=== PATIENT | female | born 1970 | race Caucasian/White ===

== ENCOUNTER 2018-09-02 22:35 | Emergency (ER) | payer BC ==
--- OUTSIDE RECORDS SUMMARY | 2018-09-02 22:39 | XMS REPORT | Continuity of Care Document ---
:1970 Author Organization [facility] Care Team Providers Name Role Phone Milton Arnold MD Unavailable Unavailable Insurance Providers Payer name Policy type / Coverage Policy ID Covered alliance party ID Policy Evangelista [place] Encounters Encounter Performer Location Date [facility] [place] Oct 21, 2014 Problems Problem Effective Dates Problem Status STATUS POST CHOLECYSTECTOMY Jul 22, 2014 Active 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, 2014 Active Procedures Date Description Comments Jul 22, 2014 smoking status Never smoker Sep 23, 2014 smoking status Never smoker Oct 21, 2014 smoking status Never smoker Medications Medication Instructions Start Date Status NORCO 10-325 MG TABS Jul 22, 2014 Active DUEXIS 800-26.6 MG TABS Jul 22, 2014 Inactive FLAX OIL Jul 22, 2014 Inactive FTUDANVFAG-MLAQ-IZRI-COD CAPS Jul 22, 2014 Inactive EQ IBUPROFEN TABS Jul 22, 2014 Inactive LINZESS 290 MCG CAPS Jul 22, 2014 Inactive MIRALAX POWD Oct 07, 2014 Inactive ZOFRAN 4 MG TABS Oct 21, 2014 Active [facility] TABS Oct 21, 2014 Active Vital Signs Date Description Test Result Jul 22, 2014 weight E&M - 3141-9 WEIGHT 155.4 lb Jul 22, 2014 height E&M - 8302-2 HEIGHT 64 in Jul 22, 2014 temperature E&M TEMPERATURE 97.7 deg f Jul 22, 2014 pulse rate E&M - 8867-4 PULSE RATE 79 /min Jul 22, 2014 blood pressure, systolic - 8480-6 BP SYSTOLIC 149 mm Hg Jul 22, 2014 blood pressure, diastolic - 8462-4 BP DIASTOLIC 89 mm Hg Sep 23, 2014 weight E&M - 3141-9 WEIGHT 159.4 lb Sep 23, 2014 height E&M - 8302-2 HEIGHT 64 in Sep 23, 2014 temperature E&M TEMPERATURE 98.0 deg f Sep 23, 2014 respiratory rate E&M - 9279-1 RESP RATE 18 /min Sep 23, 2014 pulse rate E&M - 8867-4 PULSE RATE 82 /min Sep 23, 2014 blood pressure, systolic - 8480-6 BP SYSTOLIC 132 mm Hg Sep 23, 2014 blood pressure, diastolic - 8462-4 BP DIASTOLIC 84 mm Hg Oct 07, 2014 weight E&M - 3141-9 WEIGHT 161.4 lb Oct 07, 2014 height E&M - 8302-2 HEIGHT 64 in Oct 07, 2014 temperature E&M TEMPERATURE 97.0 deg f Oct 07, 2014 respiratory rate E&M - 9279-1 RESP RATE 17 /min Oct 07, 2014 pulse rate E&M - 8867-4 PULSE RATE 76 /min Oct 07, 2014 blood pressure, systolic - 8480-6 BP SYSTOLIC 136 mm Hg Oct 07, 2014 blood pressure, diastolic - 8462-4 BP DIASTOLIC 86 mm Hg Oct 21, 2014 weight E&M - 3141-9 WEIGHT 162.2 lb Oct 21, 2014 height E&M - 8302-2 HEIGHT 64 in Oct 21, 2014 temperature E&M TEMPERATURE 97 deg f Oct 21, 2014 pulse rate E&M - 8867-4 PULSE RATE 88 /min Oct 21, 2014 blood pressure, systolic - 8480-6 BP SYSTOLIC 140 mm Hg Oct 21, 2014 blood pressure, diastolic - 8462-4 BP DIASTOLIC 89 mm Hg
--- OUTSIDE RECORDS SUMMARY | 2018-09-02 22:39 | XMS REPORT | Continuity of Care Document ---
:1970 Author Organization [facility] Care Team Providers Name Role Phone Milton Arnold MD Unavailable Unavailable Insurance Providers Payer name Policy type / Coverage Policy ID Covered green party ID Policy Evangelista [place]: [place] Encounters Encounter Performer Location Date Office Visit Milton Arnold MD [facility] [place] [place] [facility] [place] Oct 07, 2014 Problems Problem Effective Dates Problem Status STATUS POST CHOLECYSTECTOMY Jul 22, 2014 Active 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
--- OUTSIDE RECORDS SUMMARY | 2018-09-02 22:39 | XMS REPORT | Continuity of Care Document ---
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
--- OUTSIDE RECORDS SUMMARY | 2018-09-02 22:39 | XMS REPORT | Continuity of Care Document ---
:1970 Author Organization [facility] Care Team Providers Name Role Phone Milton Arnold MD Unavailable Unavailable Insurance Providers Payer name Policy type / Coverage Policy ID Covered democrat ID Policy Evangelista [place] Encounters Encounter Performer Location Date [facility] Visit [facility] [place] Oct 28, 2014 Problems Problem Effective Dates Problem Status [...] Inactive FLAX OIL Jul 22, 2014 Inactive MAXROSAGSE-ZEGM-CRUT-COD CAPS Jul 22, 2014 Inactive EQ IBUPROFEN [...] - 8462-4 BP DIASTOLIC 89 mm Hg Oct 28, 2014 weight E&M - 3141-9 WEIGHT 160 lb Oct 28, 2014 height E&M - 8302-2 HEIGHT 64 in Oct 28, 2014 temperature E&M TEMPERATURE 98.2 deg f Oct 28, 2014 pulse rate E&M - 8867-4 PULSE RATE 86 /min Oct 28, 2014 blood pressure, systolic - 8480-6 BP SYSTOLIC 130 mm Hg Oct 28, 2014 blood pressure, diastolic - 8462-4 BP DIASTOLIC 87 mm Hg Oct 28, 2014 respiratory rate E&M - 9279-1 RESP RATE 18 /min
--- OUTSIDE RECORDS SUMMARY | 2018-09-02 22:39 | XMS REPORT | Continuity of Care Document ---
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
--- OUTSIDE RECORDS SUMMARY | 2018-09-02 22:39 | XMS REPORT | Continuity of Care Document ---
:1970 Author Organization Interface Problems Problem Status Onset Classification Date Comments Source Date Reported STATUS POST Active 07/23/19 Condition 10/28/2014 [facility] CHOLECYSTECTOMY 15 Neuro COMMUNICATING Active 07/23/19 Condition 10/28/2014 [facility] HYDROCEPHALUS 15 Neuro Medications Medication Details Route Status Patient Ordering Order Source Instructions Provider Date ZOFRAN 4 MG Active 10/22/19 [facility] TABS 15 [facility] Active 10/22/19 [facility] TABS 15 Neuro MIRALAX POWD No Longer 10/08/19 [facility] Active 15 Neuro LINZESS 290 No Longer 07/23/19 [facility] MCG CAPS Active 15 Neuro DUEXIS No Longer 07/23/19 [facility] 800-26.6 MG Active 15 Neuro TABS FLAX OIL No Longer 07/23/19 [facility] Active 15 Neuro BUTALBITAL-APA No Longer 07/23/19 [facility] P-CAFF-COD Active 15 Neuro CAPS NORCO 10-325 Active 07/23/19 [facility] MG TABS 15 Neuro EQ IBUPROFEN No Longer 07/23/19 [facility] TABS Active 15 Neuro Allergies, Adverse Reactions, Alerts Substance Category Reaction Severity Reaction Status Date Comments Source type Reported Immunizations Immunization Date Given Site Status Last Updated Comments Source Results Order Results Value Reference Date Interpretation Comments Source Name Range Vital Signs Vital Sign Value Date Comments Source Weight 160 10/28/2014 [facility] Height 64 10/28/2014 [facility] Temperature Oral (F) 98.2 F 10/28/2014 [facility] Heart Rate 86 10/28/2014 [facility] Systolic (mm Hg) 130 10/28/2014 [facility] Diastolic (mm Hg) 87 10[facility]28[facility] 18 10/28/2014 [facility] Weight 162.2 10/21/2014 [facility] Height 64 10/21/2014 [facility] Temperature Oral (F) 97 F 10/21/2014 [facility] Heart Rate 88 10/21/2014 [facility] Systolic (mm Hg) 140 10/21/2014 [facility] Diastolic (mm Hg) 89 10/21/2014 [facility] Weight 161.4 10/07/2014 [facility] Height 64 10/07/2014 [facility] Temperature Oral (F) 97.0 F 10/07/2014 [facility] Respitory Rate 17 10/07/2014 [facility] Heart Rate 76 10/07/2014 [facility] Systolic (mm Hg) 136 10/07/2014 [facility] Diastolic (mm Hg) 86 10/07/2014 [facility] Weight 159.4 09/23/2014 [facility] Height 64 09/23/2014 [facility] Temperature Oral (F) 98.0 F 09/23/2014 [facility] Respitory Rate 18 09/23/2014 [facility] Heart Rate 82 09/23/2014 [facility] Systolic (mm Hg) 132 09/23/2014 [facility] Diastolic (mm Hg) 84 09/23/2014 [facility] Weight 155.4 07/22/2014 [facility] Height 64 07/22/2014 [facility] Temperature Oral (F) 97.7 F 07/22/2014 [facility] Heart Rate 79 07/22/2014 [facility] Systolic (mm Hg) 149 07/22/2014 [facility] Diastolic (mm Hg) 89 07/22/2014 [facility] Encounters Location Location Encounter Encounter Reason Attending ADM DC Status Source Details Type Number For Provider Date Date Visit [facility] [id number] Milton Arnold 07/22 07/22 [facility] [address] [facility] [id number] Milton Arnold 09/23 09/23 [facility] [facility] [id number] Milton Arnold 10/07 10/07 [facility] [facility] [id number] Milton Arnold 10/21 10/21 [facility] [facility] [id number] Milton Arnold 10/28 10/28 [facility] Procedures Procedure Code Date Perfomer Comments Source
[2018-09-02 23:54] LABS: Absolute Lymphocytes (CBC) 2.1 K/uL (0.7-4.9); Absolute Monocytes 0.7 K/uL (0.1-1.3); Absolute Neutrophil 3.3 K/uL (1.8-8.0); Basophils % 0.2 % (0-1.3); Eosinophils % 2.2 % (0-4.4); Hematocrit 33.7 % (36.0-45.0); Lymphocytes % 33.6 % (15.3-44.8); MPV 7.8 fL (7.6-11.3); Monocytes % 10.5 % (3.3-12.3); RBC Red Blood Cell Count 4.38 M/uL (3.86-4.86)
[2018-09-03 00:09] LABS: ALT/SGPT 32 U/L (12-78); AST/SGOT 19 U/L (15-37); Albumin 3.4 g/dL (3.4-5.0); Alkaline Phosphatase 79 U/L (45-117); BUN Blood Urea Nitrogen 19 mg/dL (7-18); Bicarbonate 27 mmol/L (21-32); Bilirubin Direct < 0.1 mg/dL (0-0.2); Bilirubin Total 0.2 mg/dL (0.2-1.0); Glucose Level 86 mg/dL (74-106); Lipase 191 U/L (73-393); Protein, Total 7.2 g/dL (6.4-8.2); Sodium Level 140 mmol/L (136-145)
[2018-09-03 00:46] LABS: Urine Blood NEGATIVE (NEG); Urine Glucose NEGATIVE (NEG); Urine Protein NEGATIVE (NEG); Urine Specific Gravity 1.025 (1.005-1.030); Urine pH 5.5 (5.0-7.0)
--- NOTE | 2018-09-03 01:47 | ER ---
Nurse's Notes [facility] Name: Flaquita Thompson Age: 47 yrs Sex: Female : 1970 Arrival Date: 09/02/2018 Time: 22:39 Bed 6 Private MD: Gurwinder Mendez Diagnosis: Calculus of ureter-right Presentation: 09/02 23:00 Presenting complaint: Patient states: right lower back pain that radiates to right ak1 lower abd and down right leg X1 week. Transition of care: patient was not received from another setting of care. Onset of symptoms is unknown. Risk Assessment: Do you want to hurt yourself or someone else? Patient reports no desire to harm self or others. Initial Sepsis Screen: Does the patient meet any 2 criteria? No. Patient's initial sepsis screen is negative. Does the patient have a suspected source of infection? No. Patient's initial sepsis screen is negative. Care prior to arrival: None. 23:00 Method Of Arrival: Ambulatory ak1 23:00 Acuity: KRIS 4 ak1 Triage Assessment: 23:03 General: Appears in no apparent distress. Behavior is calm, cooperative. Pain: ak1 Complains of pain in right lower back. EENT: No signs and/or symptoms were reported regarding the EENT system. Neuro: No deficits noted. Cardiovascular: No deficits noted. Respiratory: No deficits noted. GI: No signs and/or symptoms were reported involving the gastrointestinal system. : No signs and/or symptoms were reported regarding the genitourinary system. Derm: No signs and/or symptoms reported regarding the dermatologic system. Musculoskeletal: Range of motion: intact in all extremities. 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 Patient has never been vaccinated. - Social history:: Smoking status: Patient/guardian denies using tobacco. - Ebola Screening: : No symptoms or risks identified at this time. Screenin:06 Abuse screen: Denies threats or abuse. Denies injuries from another. Nutritional ak1 screening: No deficits noted. Tuberculosis screening: No symptoms or risk factors identified. Fall Risk None identified. Assessment: 23:05 Reassessment: Patient appears in no apparent distress at this time. see triage ak1 assessment. Neuro: Level of Consciousness is awake, alert, obeys commands, Oriented to person, place, time, situation, Wash And Greaser are equal bilaterally Moves all extremities. Gait is steady, Speech is normal, Facial symmetry appears normal. 09/03 00:12 Reassessment: Patient appears in no apparent distress at this time. No changes from ak1 previously documented assessment. Patient and/or family updated on plan of care and expected duration. Pain level reassessed. Patient is alert, oriented x 3, equal unlabored respirations, skin warm/dry/pink. 01:55 Reassessment: Patient appears in no apparent distress at this time. No changes from ak1 previously documented assessment. Patient and/or family updated on plan of care and expected duration. Pain level reassessed. Patient is alert, oriented x 3, equal unlabored respirations, skin warm/dry/pink. 02:17 Reassessment: pt with steady gait at discharge. pt informed to follow up with urology ak1 and PCP. Vital Signs: 09/02 22:58 BP 162 / 83; Pulse 76; Resp 16; Temp 97.4; Pulse Ox 99% on R/A; Weight 77.11 kg (R); ak1 Height 5 ft. 5 in. (165.10 cm) (R); Pain 10/10; 09/03 00:13 BP 136 / 82; Pulse 75; Resp 16; Pulse Ox 99% on R/A; ak1 01:55 BP 178 / 84; Pulse 66; Resp 16; Temp 98.; Pulse Ox 98% on R/A; ak1 09/02 22:58 Body Mass Index 28.29 (77.11 kg, 165.10 cm) ak1 ED Course: 09/02 22:39 Patient arrived in ED. es 22:41 Gurwinder Mendez MD is Private Physician. es 22:58 Mile Dent, RN is Primary Nurse. ak1 22:58 Arm band placed on Patient placed in an exam room, on a stretcher, on pulse oximetry, ak1 Patient notified of wait time. 23:01 Triage completed. ak1 23:06 Link Patterson NP is PHCP. pm1 23:06 Gonzalo Joe MD is Attending Physician. pm1 23:07 Patient has correct armband on for positive identification. Bed in low position. Call ak1 light in reach. Side rails up X 1. Adult w/ patient. Pulse ox on. NIBP on. 23:37 Initial lab(s) drawn, by me, sent to lab. Urine collected: clean catch specimen, clear, ak1 Amount Voided: 30mL. Inserted saline lock: 22 gauge in right antecubital area, using aseptic technique. Blood collected. 0603 01:12 CT Stone Protocol In Process Unspecified. EDMS 01:57 No provider procedures requiring assistance completed. ak1 02:17 IV discontinued, intact, bleeding controlled, No redness/swelling at site. Pressure ak1 dressing applied. Administered Medications: 02:15 Drug: Flomax 0.4 mg Route: PO; ak1 02:16 Follow up: Response: No adverse reaction; Medication administered at discharge. ak1 02:15 Drug: Cipro 500 mg Route: PO; ak1 02:15 Follow up: Response: No adverse reaction; Medication administered at discharge. ak1 02:15 Drug: TORadol 30 mg Route: IVP; Site: right antecubital; ak1 02:16 Follow up: Response: No adverse reaction; Medication administered at discharge. ak1 Outcome: 01:47 Discharge ordered by . pm1 01:58 Condition: good ak1 02:16 Discharged to home ambulatory, with family. ak1 02:16 Discharge instructions given to patient, family, Instructed on discharge instructions, follow up and referral plans. no drinking with medication, no driving heavy equipment, medication usage, safe sex practices, control, Demonstrated understanding of instructions, follow-up care, medications, Prescriptions given X 4. 02:18 Patient left the ED. ak1 Signatures: Dispatcher [employer] Ria Smith Amber, RN RN ak1 Link Patterson, MARY NET DEVELOPMENT MANAGER pm1
--- NOTE | 2018-09-03 01:47 | EDPHYS ---
Physician Documentation [facility] Name: Flaquita Thompson Age: 47 yrs Sex: Female : 1970 Arrival Date: 09/02/2018 Time: 22:39 Bed 6 Private MD: Gurwinder Mendez ED Physician Gonzalo Joe HPI: 09/03 00:05 This 47 yrs old Female presents to ER via Ambulatory with complaints of Back pm1 Pain. 00:05 The patient complains of pain in the right low back. The pain radiates to the right pm1 leg. Onset: The symptoms/episode began/occurred 1 week(s) ago. Modifying factors: The symptoms are alleviated by nothing. the symptoms are aggravated by nothing. Associated signs and symptoms: Pertinent negatives: diarrhea, dysuria, fever, nausea, vomiting. Severity of pain: in the emergency department the pain is actually worse. The patient has not experienced similar symptoms in the past. The patient has not recently seen a physician. 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 Patient has never been vaccinated. - Social history:: Smoking status: Patient/guardian denies using tobacco. - Ebola Screening: : No symptoms or risks identified at this time. ROS: 09/03 00:05 Constitutional: Negative for fever, chills, and weight loss, Eyes: Negative for injury, pm1 pain, redness, and discharge, ENT: Negative for injury, pain, and discharge, Neck: Negative for injury, pain, and swelling, Cardiovascular: Negative for chest pain, palpitations, and edema, Respiratory: Negative for shortness of breath, cough, wheezing, and pleuritic chest pain, Abdomen/GI: Negative for abdominal pain, nausea, vomiting, diarrhea, and constipation. : Negative for injury, bleeding, discharge, and swelling, MS/Extremity: Negative for injury and deformity, Skin: Negative for injury, rash, and discoloration, Neuro: Negative for headache, weakness, numbness, tingling, and seizure. Back: Positive for flank pain, on the right, Negative for decreased range of motion, pain at rest, pain with movement. Exam: 00:05 Constitutional: This is a well developed, well nourished patient who is awake, alert, pm1 and in no acute distress. Head/Face: Normocephalic, atraumatic. Eyes: Pupils equal round and reactive to light, extra-ocular motions intact. Lids and lashes normal. Conjunctiva and sclera are non-icteric and not injected. Cornea within normal limits. Periorbital areas with no swelling, redness, or edema. ENT: Nares patent. No nasal discharge, no septal abnormalities noted. Tympanic membranes are normal and external auditory canals are clear. Oropharynx with no redness, swelling, or masses, exudates, or evidence of obstruction, uvula midline. Mucous membranes moist. Neck: Trachea midline, no thyromegaly or masses palpated, and no cervical lymphadenopathy. Supple, full range of motion without nuchal rigidity, or vertebral point tenderness. No Meningismus. Chest/axilla: Normal chest wall appearance and motion. Nontender with no deformity. No lesions are appreciated. Cardiovascular: Regular rate and rhythm with a normal S1 and S2. No gallops, murmurs, or rubs. Normal PMI, no JVD. No pulse deficits. Respiratory: Lungs have equal breath sounds bilaterally, clear to auscultation and percussion. No rales, rhonchi or wheezes noted. No increased work of breathing, no retractions or nasal flaring. Abdomen/GI: Soft, non-tender, with normal bowel sounds. No distension or tympany. No guarding or rebound. No evidence of tenderness throughout. 00:05 Skin: Warm, dry with normal turgor. Normal color with no rashes, no lesions, and no evidence of cellulitis. MS/ Extremity: Pulses equal, no cyanosis. Neurovascular intact. Full, normal range of motion. 00:05 Back: normal spinal alignment noted, CVA tenderness, that is mild, is noted on the right, vertebral tenderness, is not appreciated. 00:05 Neuro: Orientation: is normal, Motor: is normal, moves all fours. Vital Signs: 09/02 22:58 BP 162 / 83; Pulse 76; Resp 16; Temp 97.4; Pulse Ox 99% on R/A; Weight 77.11 kg (R); ak1 Height 5 ft. 5 in. (165.10 cm) (R); Pain 01/10; 09/03 00:13 BP 136 / 82; Pulse 75; Resp 16; Pulse Ox 99% on R/A; ak1 01:55 BP 178 / 84; Pulse 66; Resp 16; Temp 98.; Pulse Ox 98% on R/A; ak1 09/02 22:58 Body Mass Index 28.29 (77.11 kg, 165.10 cm) [facility] MDM: 09/02 23:09 Patient medically screened. pm1 09/03 01:46 Data reviewed: vital signs. Data interpreted: Pulse oximetry: on room air is 99 %. pm1 Interpretation: normal. Counseling: I had a detailed discussion with the patient and/or guardian regarding: the historical points, exam findings, and any diagnostic results supporting the discharge/admit diagnosis, lab results, radiology results, the need for outpatient follow up, to return to the emergency department if symptoms worsen or persist or if there are any questions or concerns that arise at home. 09/02 23:10 Order name: Basic Metabolic Panel; Complete Time: 00:25 pm09/02 23:10 Order name: CBC with Diff; Complete Time: 00:05 pm09/02 23:10 Order name: Creatinine for Radiology; Complete Time: 00:25 pm09/02 23:10 Order name: Hepatic Function; Complete Time: 00:25 pm09/02 23:10 Order name: Lipase; Complete Time: 00:25 pm09/02 23:38 Order name: Urine Dipstick--Ancillary (enter results) [facility] 09/02 23:10 Order name: IV Saline Lock; Complete Time: 23:41 pm09/02 23:10 Order name: Labs collected and sent; Complete Time: 23:41 pm09/02 23:10 Order name: CT Stone Protocol [facility] 09/02 23:10 Order name: Urine Dipstick-Ancillary (obtain specimen); Complete Time: 23:40 pm1 09/02 23:38 Order name: Urine --Ancillary (enter results) [facility] 09/02 23:10 Order name: Urine Test (obtain specimen); Complete Time: 23:40 pm1 Administered Medications: 02:15 Drug: Flomax 0.4 mg Route: PO; ak1 02:16 Follow up: Response: No adverse reaction; Medication administered at discharge. ak1 02:15 Drug: Cipro 500 mg Route: PO; ak1 02:15 Follow up: Response: No adverse reaction; Medication administered at discharge. ak1 02:15 Drug: TORadol 30 mg Route: IVP; Site: right antecubital; ak1 02:16 Follow up: Response: No adverse reaction; Medication administered at discharge. ak1 Disposition: 02:49 Co-signature as Attending Physician, Gonzalo Joe MD. erin Disposition: 09/03/18 01:47 Discharged to Home. Impression: Calculus of ureter - right. - Condition is Stable. - Discharge Instructions: Kidney Stones, Dietary Guidelines to Help Prevent Kidney Stones. - Prescriptions for Tylenol- Codeine #3 300-30 mg Oral Tablet - take 2 tablet by ORAL route every 6 hours As needed; 30 tablet. Zofran 4 mg Oral Tablet - take 1 tablet by ORAL route every 12 hours As needed; 20 tablet. Flomax 0.4 mg Oral Capsule, Sust. Release 24 hr - take 1 capsule by ORAL route once daily 1/2 hour following the same meal each day; 30 capsule. Cipro 500 mg Oral Tablet - take 1 tablet by ORAL route every 12 hours for 7 days; 14 tablet. - Work release form, Medication Reconciliation Form, Thank You Letter, Antibiotic Education, Prescription Opioid Use form. - Follow up: Emergency Department; When: As needed; Reason: Worsening of condition. Follow up: Private Physician; When: 2 - 3 days; Reason: Recheck today's complaints, Continuance of care, Re-evaluation by your physician. - Problem is new. - Symptoms have improved. Signatures: Dispatcher [employer] EDMS Gonzalo Joe MD MD pkl Mile Dent RN RN ak1 Link Patterson NP PHOTOGRAPHIC SUPERVISOR pm1 Corrections: (The following items were deleted from the chart) 02:18 01:47 09/03/2018 01:47 Discharged to Home. Impression: Calculus of ureter - right. ak1 Condition is Stable. Forms are Medication Reconciliation Form, Thank You Letter, Antibiotic Education, Prescription Opioid Use. Follow up: Emergency Department; When: As needed; Reason: Worsening of condition. Follow up: Private Physician; When: 2 - 3 days; Reason: Recheck today's complaints, Continuance of care, Re-evaluation by your physician. Problem is new. Symptoms have improved. pm1
[2018-09-03] MEDS ORDERED: CIPROFLOXACIN HCL 500 MG TAB ONE (02:22)
[2018-09-03] MEDS ORDERED: TAMSULOSIN 0.4 MG SR CAP ONE (02:23)
[2018-09-03] MEDS ORDERED: KETOROLAC 30 MG/ML INJ ONE (02:23)
--- NOTE | 2018-09-03 10:04 | RAD REPORT ---
EXAM DESCRIPTION: CT Abdomen and Pelvis Without Intravenous Contrast CLINICAL HISTORY: The patient is 47 years old and is Female; Right flank pain TECHNIQUE: Axial computed tomography images of the abdomen and pelvis without intravenous contrast. Sagittal and coronal reformatted images were created and reviewed. This CT exam was performed usi ng one or more of the following dose reduction techniques: automated exposure control, adjustment o f the mA and/or kV according to patient size, and/or use of iterative reconstruction technique. COMPARISON: None. FINDINGS: LUNG BASES: Unremarkable. No mass. No consolidation. ABDOMEN: LIVER: Unremarkable. GALLBLADDER AND BILE DUCTS: Prior cholecystectomy. No ductal dilation. PANCREAS: Unremarkable. No ductal dilation. SPLEEN: Unremarkable. No splenomegaly. ADRENALS: Unremarkable. No mass. KIDNEYS AND URETERS: 2.3 mm radiopaque stone of the right UVJ. Mild hydronephrosis and diffuse hyd roureter. No right renal enlargement or perinephric stranding at this time. STOMACH AND BOWEL: Unremarkable. No obstruction. No mucosal thickening. PELVIS: APPENDIX: The appendix is seen and is within normal limits. Punctate appendicolith is seen proxima lly. BLADDER: Unremarkable. No stones. REPRODUCTIVE: Unremarkable as visualized. ABDOMEN and PELVIS: INTRAPERITONEAL SPACE: Unremarkable. No free air. No significant fluid collection. BONES/JOINTS: No acute fracture. No dislocation. SOFT TISSUES: Small fat-containing umbilical hernia. VASCULATURE: Unremarkable. No abdominal aortic aneurysm. LYMPH NODES: Unremarkable. No enlarged lymph nodes. IMPRESSION: Obstructive 2.3 mm right UVJ stone with moderate hydronephrosis and diffuse hydroureter. No renal enlargement or perinephric stranding. Electronically signed by: Skinny Dunn DO 09/03/2018 1:20 AM CDT Due to temporary technical issues with the PACS/Fluency reporting system, reports are being signed by the in house radiologist as a courtesy to ensure prompt reporting. The interpreting radiologist is f ully responsible for the content of the report.
== END 2018-09-03 02:18 | disposition home or self-care (01) ==
LOC: ER 22:35
DX: N20.1 Calculus of ureter (principal); Z98.2 Presence of cerebrospinal fluid drainage device
CPT/HCPCS: 36415; 74176; 76377; 80048; 80076; 81003; 81025; 83690; 85025; 96374; 99284

== ENCOUNTER 2019-04-03 19:42 | Observation (INO) | payer BC ==
[2019-04-03] MEDS ORDERED: FENTANYL CITR 100 MCG/2 ML ONE (20:33)
[2019-04-03] MEDS ORDERED: NA CHLORIDE 0.9% 1,000 ML ONE (20:33)
[2019-04-03 20:35] LABS: Absolute Lymphocytes (CBC) 1.1 K/uL (0.7-4.9); Basophils % 0.3 % (0-1.3); Hematocrit 38.1 % (36.0-45.0); Lymphocytes % 8.2 % (15.3-44.8); RBC Red Blood Cell Count 4.59 M/uL (3.86-4.86)
[2019-04-03] MEDS ORDERED: ONDANSETRON 4 MG/2 ML VIAL ONE ×2 (20:41→23:06)
[2019-04-03 20:56] LABS: ALT/SGPT 37 U/L (12-78); AST/SGOT 19 U/L (15-37); Albumin 3.5 g/dL (3.4-5.0); Alkaline Phosphatase 82 U/L (45-117); BUN Blood Urea Nitrogen 11 mg/dL (7-18); Bicarbonate 26 mmol/L (21-32); Bilirubin Direct < 0.1 mg/dL (0-0.2); Bilirubin Total 0.3 mg/dL (0.2-1.0); Glucose Level 113 mg/dL (74-106); Lipase 108 U/L (73-393); Sodium Level 138 mmol/L (136-145)
[2019-04-03 21:41] LABS: Platelet Estimate ADEQ; Urine White Blood Cell Casts OK
[2019-04-03 21:42] LABS: Blood Morphology Comment NOT SEEN (NOT SEEN)
[2019-04-03] MEDS ORDERED: CEFTRIAXONE/SWI 1gm 1 GM/10 ML SYR ONE (22:12)
[2019-04-03] MEDS ORDERED: METRONIDAZOLE 500mg IVPB 500 MG/100 ML BAG IV ONE (22:12)
[2019-04-03] MEDS ORDERED: MORPHINE 4 MG/ML SYR ONE (22:34)
[2019-04-03 22:41] LABS: Urine Amorphous Sediment 3+ /HPF (NONE SEEN); Urine Bacteria <20 /HPF (<20); Urine Culture Reflex Order NOT NEEDED; Urine RBC 20-50 /HPF (NONE SEEN)
[2019-04-03 22:42] LABS: Urine Blood 2+ (NEG); Urine Glucose NEGATIVE (NEG); Urine Protein NEGATIVE (NEG); Urine Specific Gravity 1.015 (1.005-1.030); Urine pH 7.5 (5.0-7.0)
--- NOTE | 2019-04-03 23:04 | ER ---
Nurse's Notes [facility] Name: Flaquita Thompson Age: 48 yrs Sex: Female : 1970 Arrival Date: 04/03/2019 Time: 19:46 Bed 6 Private MD: Gurwinder Mendez Diagnosis: Acute appendicitis Presentation: 04/03 19:48 Presenting complaint: Patient states: Lower right abdominal pain and side pain that aj1 started at around 1300 today and has gotten progressively worse. Reports that pain is worse when she moves or when she hit a bump while she was driving up here. Reports nausea. Denies V/D. Denies fever. Transition of care: patient was not received from another setting of care. Onset of symptoms was April 03, 2019 at 13:00. Risk Assessment: Do you want to hurt yourself or someone else? Patient reports no desire to harm self or others. Initial Sepsis Screen: Does the patient meet any 2 criteria? No. Patient's initial sepsis screen is negative. Does the patient have a suspected source of infection? Yes: Acute abdominal pain. Care prior to arrival: None. 19:48 Method Of Arrival: Ambulatory [facility] 19:48 Acuity: KRIS 3 aj1 Triage Assessment: 19:56 General: Appears in no apparent distress. comfortable, Behavior is calm, cooperative, aj1 appropriate for age. Pain: Complains of pain in right lower quadrant Pain does not radiate. Pain currently is 10 out of 10 on a pain scale. Neuro: Level of Consciousness is awake, alert, obeys commands. Cardiovascular: Patient's skin is warm and dry. Respiratory: Airway is patent Respiratory effort is even, unlabored, Respiratory pattern is regular, symmetrical. 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 - Social history:: Smoking status: Patient/guardian denies using tobacco. - Ebola Screening: : Patient denies travel to an Ebola-affected area in the 21 days before illness onset. Screenin:28 Abuse screen: Denies threats or abuse. Denies injuries from another. Nutritional rr5 screening: No deficits noted. Tuberculosis screening: No symptoms or risk factors identified. Fall Risk IV access (20 points). Total Leslie Fall Scale indicates No Risk (0-24 pts). Assessment: 20:00 General: Appears in no apparent distress. uncomfortable, Behavior is calm, cooperative, rr5 appropriate for age. 20:00 Pain: Complains of pain in right lower quadrant Pain does not radiate. Pain currently rr5 is 10 out of 10 on a pain scale. Quality of pain is described as aching, Pain began gradually, Is intermittent. Neuro: Level of Consciousness is awake, alert, obeys commands, Oriented to person, place, time, situation, Appropriate for age. Cardiovascular: Capillary refill < 3 seconds Patient's skin is warm and dry. Respiratory: Airway is patent Respiratory effort is even, unlabored, Respiratory pattern is regular, symmetrical. GI: Abdomen is round Reports upper abdominal pain, nausea. : No signs and/or symptoms were reported regarding the genitourinary system. EENT: No signs and/or symptoms were reported regarding the EENT system. Derm: Skin is intact, is healthy with good turgor, Skin temperature is warm. Musculoskeletal: Circulation, motion, and sensation intact. Capillary refill < 3 seconds. 21:00 Reassessment: Patient appears in no apparent distress at this time. Patient is alert, rr5 oriented x 3, equal unlabored respirations, skin warm/dry/pink. Patient states symptoms have improved. 22:00 Reassessment: Patient appears in no apparent distress at this time. Patient is alert, rr5 oriented x 3, equal unlabored respirations, skin warm/dry/pink. awaiting for CT result. Pain: Pain currently is 7 out of 10 on a pain scale. 22:35 Reassessment: Patient appears in no apparent distress at this time. Patient is alert, rr5 oriented x 3, equal unlabored respirations, skin warm/dry/pink. Patient states symptoms have improved. 23:00 Reassessment: Patient appears in no apparent distress at this time. complaint of rr5 nausea, ED provider aware with order made and carried out. Vital Signs: 19:56 BP 156 / 65; Pulse 92; Resp 18; Temp 98.9; Pulse Ox 98% on R/A; Weight 77.11 kg (R); aj1 Height 5 ft. 5 in. (165.10 cm) (R); Pain 10/10; 21:20 BP 129 / 61; Pulse 83; Resp 17; Pulse Ox 97% ; Pain 7/10; rr5 22:10 BP 134 / 88; Pulse 100; Resp 19; Pulse Ox 98% ; rr5 23:00 BP 137 / 80; Pulse 81; Resp 17; Pulse Ox 99% on R/A; rr5 19:56 Body Mass Index 28.29 (77.11 kg, 165.10 cm) aj1 ED Course: 19:46 Patient arrived in ED. es 19:46 Gurwinder Mendez MD is Private Physician. es 19:51 Gracia Jaocbson F[facility]-C [facility]. snw 19:51 Gonzalo Joe MD is Attending Physician. snw 19:52 Triage completed. aj1 19:56 Arm band placed on Patient placed in waiting room, Patient notified of wait time. aj1 20:00 Patient has correct armband on for positive identification. Placed in gown. Bed in low rr5 position. Call light in reach. Side rails up X2. Pulse ox on. NIBP on. 20:29 Renard Cope, RN is Primary Nurse. jd3 20:35 Inserted saline lock: 20 gauge in right antecubital area, using aseptic technique. rr5 Blood collected. 20:38 Radiology exam delayed due to lab results not completed at this time. (BUN/Creatinine). nj 21:59 Abdomen In Process Unspecified. EDMS 22:48 Chest Single View XRAY In Process Unspecified. EDMS 23:02 Jeffy Strong MD is Hospitalizing Provider. snw 04/04 05:45 No provider procedures requiring assistance completed. Patient admitted, IV remains in jd3 place. Administered Medications: 04/03 20:40 Drug: Zofran 4 mg Route: IVP; Site: right antecubital; rr5 21:40 Follow up: Response: No adverse reaction rr5 20:41 Drug: NS 0.9% 1000 ml Route: IV; Rate: 75 ml/hr; Site: right antecubital; rr5 22:30 Follow up: Rate change 125 ml/hr rr5 20:41 Drug: fentaNYL (PF) 25 mcg {Note: rass 0.} Route: IVP; Site: right antecubital; rr5 23:08 Follow up: Response: No adverse reaction; Pain is decreased; RASS: Alert and Calm (0) rr5 22:10 Drug: Rocephin 1 grams Route: IV; Rate: calculated rate; Site: right antecubital; rr5 23:11 Follow up: IV Status: Completed infusion rr5 23:12 Follow up: Response: No adverse reaction rr5 22:15 Drug: Flagyl 500 mg Volume: 100 ml; Route: IVPB; Rate: 200 ml/hr; Infused Over: 30 rr5 mins; Site: right antecubital; 22:40 Drug: morphine 4 mg {Note: rass 0.} Route: IVP; Site: right antecubital; rr5 23:08 Drug: Zofran 4 mg Route: IVP; Site: right antecubital; rr5 Outcome: 23:03 Decision to Hospitalize by Provider. [facility] 04/04 05:45 Admitted to OR accompanied by nurse, via stretcher, Report called to Christin MENDENHALL jd3 Condition: stable Instructed on the need for admit, Demonstrated understanding of instructions. 05:55 Patient left the ED. rr5 Signatures: Dispatcher [employer] Tracy Choi, RN RN aj1 Gracia Jacobson, DOG CATCHER-C DOG CATCHER-Csnw Ria Garza Nathan nj Davies, Jonathon, RN RN jd3 Trace Phelan RN RN rr5
--- NOTE | 2019-04-03 23:05 | EDPHYS ---
Physician Documentation [facility] Name: Flaquita Thompson Age: 48 yrs Sex: Female : 1970 Arrival Date: 04/03/2019 Time: 19:46 Bed 6 Private MD: Gurwinder Mendez ED Physician Gonzalo Joe HPI: 04/03 22:30 This 48 yrs old Female presents to ER via Ambulatory with complaints of Flank snw Pain, Fever. 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 - Social history:: Smoking status: Patient/guardian denies using tobacco. - Ebola Screening: : Patient denies travel to an Ebola-affected area in the 21 days before illness onset. ROS: 22:29 Constitutional: Negative for fever, chills, and weight loss, Eyes: Negative for injury, snw pain, redness, and discharge, ENT: Negative for injury, pain, and discharge, Neck: Negative for injury, pain, and swelling, Cardiovascular: Negative for chest pain, palpitations, and edema, Respiratory: Negative for shortness of breath, cough, wheezing, and pleuritic chest pain, Back: Negative for injury and pain, : Negative for injury, bleeding, discharge, and swelling, MS/Extremity: Negative for injury and deformity, Skin: Negative for injury, rash, and discoloration, Neuro: Negative for headache, weakness, numbness, tingling, and seizure. 22:29 Abdomen/GI: Positive for abdominal pain, nausea and vomiting. Exam: 22:25 Constitutional: This is a well developed, well nourished patient who is awake, alert, snw and in no acute distress. Head/Face: Normocephalic, atraumatic. Eyes: Pupils equal round and reactive to light, extra-ocular motions intact. Lids and lashes normal. Conjunctiva and sclera are non-icteric and not injected. Cornea within normal limits. Periorbital areas with no swelling, redness, or edema. ENT: Nares patent. No nasal discharge, no septal abnormalities noted. Tympanic membranes are normal and external auditory canals are clear. Oropharynx with no redness, swelling, or masses, exudates, or evidence of obstruction, uvula midline. Mucous membranes moist. Neck: Trachea midline, no thyromegaly or masses palpated, and no cervical lymphadenopathy. Supple, full range of motion without nuchal rigidity, or vertebral point tenderness. No Meningismus. Chest/axilla: Normal chest wall appearance and motion. Nontender with no deformity. No lesions are appreciated. Cardiovascular: Regular rate and rhythm with a normal S1 and S2. No gallops, murmurs, or rubs. Normal PMI, no JVD. No pulse deficits. Respiratory: Lungs have equal breath sounds bilaterally, clear to auscultation and percussion. No rales, rhonchi or wheezes noted. No increased work of breathing, no retractions or nasal flaring. Back: No spinal tenderness. No costovertebral tenderness. Full range of motion. Skin: Warm, dry with normal turgor. Normal color with no rashes, no lesions, and no evidence of cellulitis. MS/ Extremity: Pulses equal, no cyanosis. Neurovascular intact. Full, normal range of motion. Neuro: Awake and alert, GCS 15, oriented to person, place, time, and situation. Cranial nerves II-XII grossly intact. Motor strength 5/5 in all extremities. Sensory grossly intact. Cerebellar exam normal. Normal gait. Psych: Awake, alert, with orientation to person, place and time. Behavior, mood, and affect are within normal limits. 22:25 Abdomen/GI: Inspection: abdomen appears normal, Bowel sounds: diminished, Palpation: moderate abdominal tenderness, severe abdominal tenderness, in the right lower quadrant, Indicators: McBurney's point is tender. Vital Signs: 19:56 BP 156 / 65; Pulse 92; Resp 18; Temp 98.9; Pulse Ox 98% on R/A; Weight 77.11 kg (R); aj1 Height 5 ft. 5 in. (165.10 cm) (R); Pain 10/10; 21:20 BP 129 / 61; Pulse 83; Resp 17; Pulse Ox 97% ; Pain 7/10; rr5 22:10 BP 134 / 88; Pulse 100; Resp 19; Pulse Ox 98% ; rr5 23:00 BP 137 / 80; Pulse 81; Resp 17; Pulse Ox 99% on R/A; rr5 19:56 Body Mass Index 28.29 (77.11 kg, 165.10 cm) aj1 MDM: 20:13 Patient medically screened. snw 22:23 Data reviewed: vital signs, nurses notes. Data interpreted: Pulse oximetry: on room air snw is 98 %. Interpretation: normal. Counseling: I had a detailed discussion with the patient and/or guardian regarding: the historical points, exam findings, and any diagnostic results supporting the discharge/admit diagnosis, the presence of at least one elevated blood pressure reading (>120/80) during this emergency department visit, lab results, radiology results, the need for further work-up and treatment in the hospital. Physician consultation: Jaleel Richards MD was called at 22:24, was contacted at 22:24, regarding patient's condition, would like admission per Dr. Jeffy Strong MD. 23:01 Physician consultation: Jeffy Strong MD was called at 23:01, was contacted at 23:01, snw regarding admission, to the medical/surgical unit. to consult Dr. Richards, who requests Zosyn and will take pt to OR at 0600. 04/03 19:52 Order name: Urine Culture w 04/03 19:52 Order name: Urine Microscopic Only; Complete Time: 22:43 snw 04/03 20:14 Order name: Basic Metabolic Panel; Complete Time: 20:58 snw 04/03 20:14 Order name: CBC with Diff; Complete Time: 21:56 snw 04/03 20:14 Order name: Creatinine for Radiology; Complete Time: 20:58 snw 04/03 20:14 Order name: Hepatic Function; Complete Time: 20:58 snw 04/03 20:14 Order name: Lipase; Complete Time: 20:58 snw 04/03 21:42 Order name: CBC Smear Scan; Complete Time: 21:56 EDMS 04/03 22:05 Order name: Urine Dipstick--Ancillary (enter results); Complete Time: 22:43 mw2 04/03 22:05 Order name: Urine --Ancillary (enter results); Complete Time: 22:43 mw2 04/03 23:37 Order name: Comprehensive Metabolic Panel EDMS 04/03 23:37 Order name: Comprehensive Metabolic Panel; Complete Time: 06:00 EDMS 04/03 23:37 Order name: Magnesium EDMS 04/03 23:37 Order name: Magnesium; Complete Time: 06:00 EDMS 04/03 20:37 Order name: Abdomen EDMS 04/03 22:21 Order name: EKG; Complete Time: 22:22 snw 04/03 22:21 Order name: Chest Single View XRAY snw 04/03 23:37 Order name: Phosphorus EDMS 04/03 23:37 Order name: Phosphorus; Complete Time: 06:00 EDMS 04/04 05:15 Order name: CBC with Automated Diff; Complete Time: 06:00 EDMS 04/04 05:19 Order name: Protime (+INR); Complete Time: 06:00 EDMS 04/04 05:19 Order name: PTT, Activated Partial Thromb; Complete Time: 06:00 EDMS 04/03 19:52 Order name: Urine Dipstick-Ancillary (obtain specimen); Complete Time: 22:05 snw 04/03 20:14 Order name: Labs collected and sent; Complete Time: 20:41 snw 04/03 20:14 Order name: NPO; Complete Time: 20:42 snw 04/03 22:21 Order name: EKG - Nurse/Tech; Complete Time: 22:41 snw 04/03 22:22 Order name: Misc. Order: increase ivf rate to 125ml/hr; Complete Time: 22:25 snw 04/03 23:38 Order name: CONS Physician Consult EDVT 04/03 23:38 Order name: NPO EDVT Administered Medications: 20:40 Drug: Zofran 4 mg Route: IVP; Site: right antecubital; rr5 21:40 Follow up: Response: No adverse reaction rr5 20:41 Drug: NS 0.9% 1000 ml Route: IV; Rate: 75 ml/hr; Site: right antecubital; rr5 22:30 Follow up: Rate change 125 ml/hr rr5 20:41 Drug: fentaNYL (PF) 25 mcg {Note: rass 0.} Route: IVP; Site: right antecubital; rr5 23:08 Follow up: Response: No adverse reaction; Pain is decreased; RASS: Alert and Calm (0) rr5 22:10 Drug: Rocephin 1 grams Route: IV; Rate: calculated rate; Site: right antecubital; rr5 23:11 Follow up: IV Status: Completed infusion rr5 23:12 Follow up: Response: No adverse reaction rr5 22:15 Drug: Flagyl 500 mg Volume: 100 ml; Route: IVPB; Rate: 200 ml/hr; Infused Over: 30 rr5 mins; Site: right antecubital; 22:40 Drug: morphine 4 mg {Note: rass 0.} Route: IVP; Site: right antecubital; rr5 23:08 Drug: Zofran 4 mg Route: IVP; Site: right antecubital; rr5 Disposition: 04/04 06:00 Co-signature as Attending Physician, Gonzalo Joe MD. [email or web address] Disposition: 04/03/19 23:03 Hospitalization ordered by Jeffy Strong for Inpatient Admission. Preliminary diagnosis is Acute appendicitis. - Bed requested for [facility] ER HOLD. - Status is Inpatient Admission. rr5 - Condition is Stable. - Problem is new. - Symptoms have worsened. UTI on Admission? No Signatures: Dispatcher [employer] EDVT Tracy Amor RN RN [email or web address] Emma Chou RN Gonzalo Carvajal MD MD pkGracia Rogers, FITNESS ASSISTANT-C FITNESS ASSISTANT-Csnw Trace Phelan RN RN rr5 Corrections: (The following items were deleted from the chart) 04/03 20:37 20:15 Abdomen W/ Con+CT.RAD.BRZ ordered. EDVT EDMS 23:07 23:03 Hospitalization Ordered by Jeffy Strong MD for Inpatient Admission. Preliminary mw diagnosis is Acute appendicitis. Bed requested for Telemetry/MedSurg (Inpatient). Status is Inpatient Admission. Condition is Stable. Problem is new. Symptoms have worsened. UTI on Admission? No. snw 04/04 05:55 04/03 23:07 04/03/2019 23:03 Hospitalization Ordered by Jeffy Strong MD for Inpatient rr5 Admission. Preliminary diagnosis is Acute appendicitis. Bed requested for [facility] ER HOLD. Status is Inpatient Admission. Condition is Stable. Problem is new. Symptoms have worsened. UTI on Admission? No. mw
[2019-04-03] MEDS ORDERED: MORPHINE 4 MG/ML SYR IV PRN (23:28)
[2019-04-03] MEDS ORDERED: ONDANSETRON 4 MG/2 ML VIAL IV PRN (23:28)
[2019-04-03] MEDS ORDERED: ACETAMINOPHEN 500 MG TAB PO PRN (23:28)
[2019-04-03] MEDS ORDERED: METOPROLOL TARTRATE 5 MG/5 ML INJ IV PRN (23:37)
[2019-04-03] MEDS ORDERED: NA CHLORIDE 0.9% 1,000 ML IV SCH (23:45)
[2019-04-04] MEDS ORDERED: PIPER/TAZO/NS 3.375gm 3.375 GM/100 ML BAG IVPB SCH
[2019-04-04 01:24] VITALS: BMI 28.3
[2019-04-04] MEDS ORDERED: NA CHLORIDE 0.9% 1,000 ML ONE (02:01)
[2019-04-04] MEDS ORDERED: MORPHINE 4 MG/ML SYR ONE (03:44)
[2019-04-04 05:05] LABS: Basophils % 0.6 % (0-1.3); Hematocrit 34.2 % (36.0-45.0); Lymphocytes % 8.4 % (15.3-44.8); MPV 7.5 fL (7.6-11.3)
[2019-04-04] MEDS ORDERED: BUPIVACA 0.5%/EPI 0.0005%/PF 30 ML VIAL ONE (05:17)
[2019-04-04] MEDS ORDERED: BUPIVACAINE 0.25% PF 30 ML VIAL ONE (05:17)
[2019-04-04 05:18] LABS: Protime INR 1.08
[2019-04-04 05:22] LABS: Bilirubin Total 0.5 mg/dL (0.2-1.0); Magnesium 2.1 mg/dL (1.8-2.4); Phosphorus 2.8 mg/dL (2.5-4.9); Potassium 3.9 mmol/L (3.5-5.1); Protein, Total 6.3 g/dL (6.4-8.2)
[2019-04-04] MEDS ORDERED: PIPER/TAZO/NS 3.375gm 3.375 GM/100 ML BAG ONE ×2 (05:27→05:38)
--- NOTE | 2019-04-04 05:30 | P.HP ---
Certification for Inpatient Patient admitted to: Observation With expected LOS: <2 Midnights Patient will require the following post-hospital care: None Practitioner: I am a practitioner with admitting privileges, knowledge of patient current condition, hospital course, and medical plan of care. Services: Services provided to patient in accordance with Admission requirements found in Title 42 Section 412.3 of the Code of Federal Regulations Patient History Date of Service: 04/04/19 Reason for admission: Acute appendicitis History of Present Illness: Patient is a 48-year-old female came to the hospital with right lower quadrant abdominal pain. His CT scan performed which revealed an acute appendicitis patient be admitted to the hospital for further evaluation. Patient with history of hydrocephalus and she has a ACCOUNT ASSISTANT shunt. She has never had any issues with a ACCOUNT ASSISTANT shunt. She also has listed as some medical issues: Hypertension, TIA , DVT. She denies any chest pain or shortness of breath. She is very low risk for cardiopulmonary complications. Would recommend continued IV antibiotic therapy with Zosyn at this time. Allergies No Known Allergies Allergy (Unverified 06/25/14 13:38) Home Medications: LORazepam [Ativan] 0.5 mg PO PRN 06/25/14 Metoprolol Succinate 50 mg PO DAILY 06/25/14 Phentermine HCl [Adipex-P] 37.5 mg PO DAILY 06/25/14 acetaZOLAMIDE [Diamox*] 250 mg PO DAILY 06/25/14 - Past Medical/Surgical History Diabetic: No -: hypertension -: kidney stones -: TIA -: Anemia -: Hydrocephalus -: DVT -: cholecysectomy -: ACCOUNT ASSISTANT shunt - Family History Father Family History: Reviewed- Non-Contributory - Social History Smoking Status: Never smoker Alcohol use: No CD- Drugs: No Caffeine use: No Place of Residence: Home Review of Systems 10-point ROS is otherwise unremarkable Physical Examination - Vital Signs Temperature: 99 F Blood Pressure: 102/58 Pulse: 73 Respirations: 17 Pulse Ox (%): 99 - Physical Exam General: Alert, In no apparent distress, Oriented x3 HEENT: Atraumatic, PERRLA, Mucous membr. moist/pink, EOMI, Sclerae nonicteric Neck: Supple, 2+ carotid pulse no bruit, No LAD, Without JVD or thyroid abnormality Respiratory: Clear to auscultation bilaterally, Normal air movement Cardiovascular: Regular rate/rhythm, Normal S1 S2, No murmurs Gastrointestinal: Normal bowel sounds, Soft and benign, Non-distended, Tenderness (Right lower quadrant) Musculoskeletal: No clubbing, No swelling, No tenderness Integumentary: No rashes Neurological: Normal gait, Normal speech, Normal strength at 5/5 x4 extr, Normal tone, Sensation intact, Cranial nerves 3-12 intact, Normal affect Lymphatics: No axilla or inguinal lymphadenopathy - Studies Laboratory Data (last 24 hrs) 04/03/19 20:30: Creatinine 0.84 04/03/19 20:30: WBC 12.8 H, Hgb 12.5, Hct 38.1, Plt Count 341 04/03/19 20:30: Sodium 138, Potassium 4.0, BUN 11, Creatinine 0.82, Glucose 113 H, Total Bilirubin 0.3, AST 19, ALT 37, Alkaline Phosphatase 82, Lipase 108 Assessment & Plan - Problems (Diagnosis) (1) Acute appendicitis Current Visit: Yes Status: Acute (2) S/P ACCOUNT ASSISTANT shunt Current Visit: Yes Status: Acute (3) Hypertension Current Visit: Yes Status: Acute (4) History of TIA (transient ischemic attack) Current Visit: Yes Status: Acute - Plan Plan: 1. IV antibiotic therapy 2. IV hydration 3. Surgical consultation 4. Pain control 5. Strict blood pressure control 6. GI and DVT prophylaxis Discharge Plan: Home Plan to discharge in: 48 Hours - Advance Directives Does patient have a Living Will: No Does patient have a Durable POA for Healthcare: No - Code Status/Comfort Care Code Status Assessed: Yes Code Status: Full Code Critical Care: No Time Spent Managing PTS Care (In Minutes): 40
[2019-04-04] MEDS ORDERED: Ringers Lactate 1,000 ML IV ONE (05:45)
[2019-04-04] MEDS ORDERED: GLYCOPYRROLATE 0.2 MG/ML SYR ONE ×2 (05:54)
[2019-04-04] MEDS ORDERED: FENTANYL CITR 100 MCG/2 ML ONE (05:54)
[2019-04-04] MEDS ORDERED: MIDAZOLAM HCL 2 MG/2 ML INJ ONE (05:54)
[2019-04-04] MEDS ORDERED: ETOMIDATE 20 MG/10 ML VIAL IV ONE (05:55)
[2019-04-04] MEDS ORDERED: ONDANSETRON 4 MG/2 ML VIAL ONE (05:55)
[2019-04-04] MEDS ORDERED: KETOROLAC 30 MG/ML INJ ONE (05:55)
[2019-04-04] MEDS ORDERED: NEOSTIGMINE 1 MG/ML -5 ML ONE (05:55)
[2019-04-04] MEDS ORDERED: ROCURONIUM 50 MG/5 ML VIAL IV ONE (05:55)
[2019-04-04] MEDS ORDERED: Phenylephrine HCl 10 MG/ML 1 ML VIAL ONE (06:02)
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
--- NOTE | 2019-04-04 06:59 | P.OP ---
Preoperative diagnosis: Acute Appendicitis Postoperative diagnosis: Acute Appendicitis Primary procedure: Laparoscopic Appendectomy Anesthesia: GETA + Local Estimated blood loss: <5 Specimen: Vermiform Appendix Findings: Non-Perforated Appendicitis Complications: None Transferred to: Recovery Room Condition: Good
[2019-04-04] MEDS ORDERED: HYDROCODONE/APAP 5/325 MG TAB PO PRN (07:57)
--- NOTE | 2019-04-04 08:05 | OP ---
Surgeon: Jaleel Richards MD, MD Preoperative Diagnosis: Acute appendicitis. Postoperative Diagnosis: Acute appendicitis. Procedure Performed: Laparoscopic appendectomy. Anesthesia: General endotracheal plus 0.5% Marcaine with epinephrine. Estimated Blood Loss: Less than 3 mL. Specimen: Vermiform appendix. Findings: Nonperforated appendicitis. Complications: None. Disposition: Transferred to recovery room in good condition. Procedure In Detail: After informed consent was obtained, patient was brought to the operating room, prepped and draped in the usual sterile fashion. After adequate anesthesia was achieved, an infraumbilical area was anesthetized with 0.5% Marcaine, sharply incised, and a 5 mm trocar was introduced in the abdomen without incident or complication. Insufflation was obtained to 15 mmHg at this time. There was no injury to vital structures upon entry into the abdomen. Two additional trocar sites were chosen, one in the suprapubic area to the right of midline, one to the left of midline. These were similarly anesthetized , sharply incised, and 5 mm trocars were introduced into the abdomen without incident or complication under direct visualization. The umbilical trocar was then upsized to 12 mm under direct visualization without incident or complication. Patient was positioned in head-down right side up position. Murky fluid was noted to be in the pelvis and the right lower quadrant, this was suctioned out at this point. The appendix was found to be inflamed grossly. It was grasped, elevated. Mesoappendiceal window was created with the [place] tractor. Endo VENANCIO 35 blue load was fired across the base of the appendix with good approximation tissues. Staple line was found to be in good anatomic position. The LigaSure was then used to take the mesoappendix down without evidence of complication. The appendix was then placed in EndoCatch bag and removed the umbilical trocar. Re-insufflation was obtained at this point. The area was inspected. There was no additional hemostatic maneuvers required and no bleeding or leakage from the staple line. The area was copiously irrigated multiple times. The pelvis was then irrigated multiple times. The patient was positioned in the neutral position. The area was suctioned out completely until completely dry. The umbilical trocar was then removed. The umbilical trocar site was closed using a Liam-Criselda suture passer with 0 Vicryl in interrupted fashion. Good approximation of tissues. The abdomen was then completely desufflated under direct visualization without evidence of complication and all skin incisions were copiously irrigated and closed with a 4-0 Monocryl in a running fashion. Dermabond placed over top. Patient tolerated the procedure well without evidence of complication, transferred to PACU in good condition. All counts were correct at the end of the case. LUIS/JANET Voice ID: [id number] Report ID: [id number] LORETTA
[2019-04-04] MEDS: NA CHLORIDE 0.9% 1,000 ML ONE ×2 (08:22→09:00)
--- NOTE | 2019-04-04 08:40 | RAD REPORT ---
EXAM DESCRIPTION: RAD - Chest Single View - 04/03/2019 10:49 pm CLINICAL HISTORY: Chest pain, preop chest for acute appendicitis COMPARISON: June 2017 TECHNIQUE: AP portable chest image was obtained 2246 hours . FINDINGS: Lung volumes are low. Lung beck are clear of any acute process. Shunt tube overlies the right-side of the chest. Heart and vasculature are normal. No measurable pleural effusion and no pneu mothorax. No acute bony abnormality seen. No acute aortic findings suspected. IMPRESSION: No acute cardiopulmonary process.
--- NOTE | 2019-04-04 10:26 | RAD REPORT ---
EXAM DESCRIPTION: CT - Abdomen Pelvis W Contrast - 04/03/2019 9:58 pm CLINICAL HISTORY: Abdominal pain. TECHNIQUE: CT scan of the abdomen and pelvis was performed with intravenous contrast. 5 mm axial images were obtained along with coronal and sagittal reformatted images. DOSE OPTIMIZATION: This facility uses dose optimization techniques as appropriate to perform exams, including at least one of the following techniques: 1. Automated exposure control. 2. Adjustment of the mA and/or kV according to patient size (this includes techniques or standardized protocols for targeted exams where dose is matched to the indication/reason for exam, i.e. extremiti es or head). 3. Use of iterative reconstructive technique. INTRAVENOUS CONTRAST: Not documented. Please refer to medical record.. COMPARISON: 09/03/2018 FINDINGS: Lung Bases: Normal. Liver: Normal. Spleen: Normal. Pancreas: Normal. Gallbladder: Surgically absent. Adrenal Glands: Normal. Kidneys: Normal. Retroperitoneal Structures: Normal. Bowel Survey: There is evidence of acute appendicitis. There are 4 discrete appendicoliths within the appendix cindy g with mild appendiceal edema and distention. There is no abscess. There is no evidence of perforation. There are mildly distended distal small bowel loops with air-fluid levels suggestive of a mild ileus. Uterus and Adnexa: Normal. Urinary Bladder: Normal. Peritoneal Cavity: Normal. Mesenteric Structures: Normal. Abdominal Wall: No hernia. Bony Structures: No suspicious lesions. IMPRESSION: 1. Acute appendicitis. NOTIFICATION: Results were discussed with AME Carpio at 10:05 PM. Electronically signed by: Alcides Valverde MD 04/03/2019 10:08 PM POULTRY [employer]ONER Due to temporary technical issues with the PACS/Fluency reporting system, reports are being signed by the in house radiologist as a courtesy to ensure prompt reporting. The interpreting radiologist is f ully responsible for the content of the report.
[2019-04-04 11:16] VITALS: BP 102/53; TEMP 98.1; O2SAT 100
[2019-04-04] MEDS ORDERED: ENOXAPARIN 30 MG/0.3 ML SQ SCH (17:00)
--- NOTE | 2019-04-05 06:47 | EKG ---
Test Date: 2019-04-03 Test Time: 22:34:34 Interactive Marketing Strategist: RR MEASUREMENT RESULTS: Intervals: Rate: 85 GA: 128 QRSD: 80 QT: 364 QTc: 433 [place]: P: 69 GA: 128 QRS: 87 T: 41 INTERPRETIVE STATEMENTS: Normal sinus rhythm Normal ECG Compared to ECG 06/01/2017 19:15:06 Sinus tachycardia no longer present T-wave abnormality no longer present Electronically Signed On 04-05-19 06:43:49 RATE REVIEWER by Kevin Kohler
[2019-04-05] MEDS ORDERED: METOPROLOL XL 50 MG TAB PO SCH (09:00)
[2019-04-05] MEDS ORDERED: acetaZOLAMIDE 250 MG TAB PO SCH (09:00)
== END 2019-04-04 11:35 | disposition home or self-care (01) ==
LOC: ER 19:42 → ERHOLD 23:31
PROVIDERS: ADMIT Hospitalist; ATTEND Hospitalist
PROC: 0DTJ4ZZ Resection of Appendix, Percutaneous Endoscopic Approach (ICD-10-PCS; principal; 2019-04-04 06:00)
DX: K35.80 Unspecified acute appendicitis (principal); I10 Essential (primary) hypertension; Z86.718 Personal history of other venous thrombosis and embolism; Z86.73 Personal history of transient ischemic attack (TIA), and cerebral infarction without residual deficits
CPT/HCPCS: 96365; 93005; 87088; 85025 ×2; 87086; 80048; 36415; 83735; 81025; 84100; 85610; 80076; 88304; 85730; 83690; 80053; 74177; 71045; 96375; 99285; 44970; Q9967; J2250; J3010 ×2; J2543 ×3; J2710; J0696; G0378 ×3; J7120; J7030 ×3; J2405 ×3; 81003; 81015; J2370

== ENCOUNTER 2021-08-10 16:12 | Emergency (ER) | payer BC ==
--- OUTSIDE RECORDS SUMMARY | 2021-08-10 16:30 | XMS REPORT | Continuity of Care Document ---
:1970 Author Organization [facility] t Address [address] [place] [address] Care Team Providers Name Role Phone Unavailable Unavailable Unavailable Problems Condition Condition Condition Status Onset Resolution Last Treating Co mments Source Name Details Category Date Date Treatment Clinician Date STATUS Condition Active 2014-10-28 Mem oria POST 4-21 16:06:00 l CHOLECYSTE STATUS 00:00: Herm esvin CTOMY POST 00 CHOLECYSTE CTOMY Active 07/22/2014 Condition 5 [facility] COMMUNICAT Condition Active 2014-10-28 Memoria ING 4-21 16:06:00 l HYDROCEPHA 00:00: Collins n MIRIAM COMMUNICAT 00 ING HYDROCEPHA MIRIAM Active 07/22/2014 Condition 5 [facility] Allergies, Adverse Reactions, Alerts This patient has no known allergies or adverse reactions. Medications Ordered Filled Start Stop Current Ordering Indication Dosage Frequency Signature Comments Components Source Medication Medication Date Date Medication? Clinician (SIG) Name Name ZOFRAN 4 MG Yes Memori a TABS 7-21 l 00:00: [facility] SENNA Yes [facility] PLUS TABS 7-21 l 00:00: MIRALAX No [facility]oria POWD 7-07 l 00:00: LINZESS 290 No Memori a MCG CAPS 4-21 l 00:00: DUEXIS No [facility] 800-26.6 MG 4-21 l TABS 00:00: FLAX OIL No Memoria 4-21 l 00:00: [place] 00 BUTALBITAL- No Memori a APAP-CAFF-C 4-21 l OD CAPS 00:00: NORCO 2015-0 Yes [facility] 10-325 MG 4-21 l TABS 00:00: [place] 00 EQ 2015-0 No [facility] IBUPROFEN 4-21 l TABS 00:00: [place] 00 Vital Signs Vital Name Observation Time Observation Value Comments Source Weight 2014-10-28 21:06:00 [facility] [place] Height 2014-10-28 21:06:00 [facility] [place] Temperature Oral (F) 2014-10-28 21:06:00 98.2 F [facility] Heart Rate 2014-10-28 21:06:00 [facility] [place] Systolic (mm Hg) 2014-10-28 21:06:00 [facility] [place] Diastolic (mm Hg) 2014-10-28 21:06:00 [facility] [place] Respitory Rate 2014-10-28 21:06:00 [facility] [place] Weight 2014-10-21 21:25:31 [facility] Height 2014-10-21 21:25:31 [facility] Temperature Oral (F) 2014-10-21 21:25:31 97 F [facility] Heart Rate 2014-10-21 21:25:31 [facility] [place] Systolic (mm Hg) 2014-10-21 21:25:31 Tr [facility] [place] Diastolic (mm Hg) 2014-10-21 21:25:31 [facility] Weight 2014-10-07 18:44:40 [facility] [place] Height 2014-10-07 18:44:40 [facility] Temperature Oral (F) 2014-10-07 18:44:40 97.0 F [facility] Respitory Rate 2014-10-07 18:44:40 [facility] [place] Heart Rate 2014-10-07 18:44:40 [facility] Systolic (mm Hg) 2014-10-07 18:44:40 Tr [facility] [place] Diastolic (mm Hg) 2014-10-07 18:44:40 [facility] [place] Weight 2014-09-23 21:58:01 [facility] [place] Height 2014-09-23 21:58:01 [facility] [place] Temperature Oral (F) 2014-09-23 21:58:01 98.0 F [facility] [place] Respitory Rate 2014-09-23 21:58:01 [facility] Heart Rate 2014-09-23 21:58:01 [facility] [place] Systolic (mm Hg) 2014-09-23 21:58:01 [facility] Diastolic (mm Hg) 2014-09-23 21:58:01 [facility] [place] Weight 2014-07-22 21:54:31 [facility] Height 2014-07-22 21:54:31 [facility] Temperature Oral (F) 2014-07-22 21:54:31 97.7 F [facility] [place] Heart Rate 2014-07-22 21:54:31 [facility] [place] Systolic (mm Hg) 2014-07-22 21:54:31 Tr [facility] [place] Diastolic (mm Hg) 2014-07-22 21:54:31 [facility] [place] Procedures This patient has no known procedures. Encounters Start End Encounter Admission Attending Care Care Encounter Source Date/Time Date/Time Type Type Clinicians Facility Department ID 2014-10-28 2014-10-28 Office nullFlavo Mischer [id number] [facility] 00:00:00 00:00:00 Visit r [facility] [id number] [facility] 2014-10-21 2014-10-21 Office nullFlavo Mischer [id number] [facility] 00:00:00 00:00:00 Visit r Neuroscienc [id number] l e [facility] 2014-10-07 2014-10-07 Office nullFlavo Mischer [id number] [facility] 00:00:00 00:00:00 Visit r Neuroscienc [id number] l e [facility] 2014-09-23 2014-09-23 Office nullFlavo Mischer [id number] [facility] 00:00:00 00:00:00 Visit r Neuroscienc [id number] l e [facility] 2014-07-22 2014-07-22 Office nullFlavo Mischer [id number] [facility] 00:00:00 00:00:00 Visit r Neuroscienc [id number] l e [facility] Results This patient has no known results.
--- NOTE | 2021-08-10 17:01 | RAD REPORT ---
EXAM DESCRIPTION: CT - Head Brain Wo Cont - 08/10/2021 4:53 pm CLINICAL HISTORY: Hydrocephalus, shunted, follow up Headache, drowsiness COMPARISON: Head Brain Wo Cont dated 11/01/2019; Head Brain Wo Cont dated 02/04/2019 TECHNIQUE: All CT scans are performed using dose optimization technique as appropriate and may inclu de automated exposure control or mA/KV adjustment according to patient size. FINDINGS: No intracranial hemorrhage or extra-axial fluid collection.Ventricular system remains prom inent however unchanged since 11/01/2019. Ventriculostomy tube is unchanged in position.No areas of b rain edema or evidence of midline shift. The paranasal sinuses and mastoids are clear. The calvarium is intact. IMPRESSION: No acute intracranial abnormality. Stable examination since 11/01/2019.
--- NOTE | 2021-08-10 17:18 | RAD REPORT ---
EXAM DESCRIPTION: RAD - Shuntogram - 08/10/2021 5:12 pm CLINICAL HISTORY: headache Headache, drowsiness COMPARISON: Abdomen Exam Complete dated 07/30/2020 FINDINGS: Right-sided shunt tubing is noted. No kinks or breaks are seen in the tubing. The lungs ap pear clear. Bowel gas pattern is nonobstructive.
[2021-08-10] MEDS ORDERED: METOCLOPRAMIDE 10 MG/2mL INJ ONE (17:43)
[2021-08-10] MEDS ORDERED: KETOROLAC 30 MG/ML INJ ONE (17:43)
[2021-08-10] MEDS ORDERED: NA CHLORIDE 0.9% 250 ML ONE (17:43)
--- NOTE | 2021-08-10 18:56 | EDPHYS ---
Physician Documentation [facility] Name: Flaquita Thompson Age: 50 yrs Sex: Female : 1970 Arrival Date: 08/10/2021 Time: 16:16 Bed 11 Private MD: ED Physician Nicholas Baptiste HPI: 08/10 16:29 This 50 yrs old Female presents to ER via Ambulatory with complaints of Headache. jmm 16:29 This is a 50-year-old female with history of hydrocephalus, hypertension the presents jmm emerged part with complaints of right-sided headache, nausea. Patient has some concerns that her shunt may be malfunctioning. Patient does also have a history of migraine headaches as well. Headache is similar to previous headaches.. 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 - Social history:: Smoking status: Patient denies any tobacco usage or history of. Patient/guardian denies using alcohol, street drugs. ROS: 16:29 Constitutional: Negative for fever, chills, and weight loss, Cardiovascular: Negative jmm for chest pain, palpitations, and edema, Respiratory: Negative for shortness of breath, cough, wheezing, and pleuritic chest pain. 16:29 Neuro: Positive for headache. 16:29 All other systems are negative. Exam: 16:29 Constitutional: This is a well developed, well nourished patient who is awake, alert, jmm and in no acute distress. Head/Face: atraumatic. Eyes: EOMI, no conjunctival erythema appreciated ENT: Moist Mucus Membranes Neck: Trachea midline, Supple Chest/axilla: Normal chest wall appearance and motion. Cardiovascular: Regular rate and rhythm. No edema appreciated Respiratory: Normal respirations, no respiratory distress appreciated Abdomen/GI: Non distended, soft Back: Normal ROM Skin: General appearance color normal MS/ Extremity: Moves all extremities, no obvious deformities appreciated, no edema noted to the lower extremities Neuro: Awake and alert Psych: Behavior is normal, Mood is normal, Patient is cooperative and pleasant Vital Signs: 16:20 BP 117 / 86; Pulse 72; Resp 18; Temp 97.9(TE); Pulse Ox 98% on R/A; Weight 73.03 kg jb4 (R); Height 5 ft. 4 in. (162.56 cm) (R); Pain 10/10; 16:20 Body Mass Index 27.64 (73.03 kg, 162.56 cm) jb4 MDM: 16:29 Patient medically screened. [facility] 18:55 Data reviewed: vital signs, nurses notes. Counseling: I had a detailed discussion with [facility] the patient and/or guardian regarding: the historical points, exam findings, and any diagnostic results supporting the discharge/admit diagnosis, radiology results, the need for outpatient follow up, to return to the emergency department if symptoms worsen or persist or if there are any questions or concerns that arise at home. ED course: Headache relieved. Patient advised to follow up with neuro. Patient is otherwise given strict return precautions. Patient understood and agrees with the plan of care. . 08/10 16:30 Order name: CT Head Brain wo Cont; Complete Time: 17:27 [facility] 08/10 16:30 Order name: Shuntogram XRAY; Complete Time: 17:27 [facility] 08/10 16:32 Order name: Saline Lock; Complete Time: 17:52 [facility] Administered Medications: 17:52 Drug: NS 0.9% 250 ml Route: IV; Rate: bolus; Site: right antecubital; iw 18:30 Follow up: IV Status: Completed infusion iw 17:52 Drug: Reglan (metoCLOPramide) 20 mg Route: IVP; Site: right antecubital; iw 18:10 Follow up: Response: No adverse reaction iw 17:52 Drug: Ketorolac 30 mg Route: IVP; Site: right antecubital; iw 18:10 Follow up: Response: No adverse reaction iw Disposition Summary: 08/10/21 18:56 Discharge Ordered Location: Home [facility] Condition: Stable [facility] Diagnosis - Headache [facility] Followup: [facility] - With: Private Physician - When: 2 - 3 days - Reason: Recheck today's complaints, Continuance of care, Re-evaluation by your physician Discharge Instructions: - Discharge Summary Sheet [facility] - Migraine Headache [facility] Forms: - Medication Reconciliation Form jmm - Thank You Letter jmm - Antibiotic Education jmm - Prescription Opioid Use [facility] Addendum: 08/13/2021 07:04 Co-signature as Attending Physician, Nicholas Baptiste MD I agree with the assessment and k dr plan of care. Signatures: Dispatcher [employer] EDNicholas Benton MD MD kdr Mickail, Joel, PA PA jmm Williams, Irene, RN RN iw Bryson, James, RN RN jb4
--- NOTE | 2021-08-10 18:56 | ER ---
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 Today the jb4 pain is worse and my vision started to blur and I started to feel nauseous. Coronavirus screen: At this time, the client does not indicate any symptoms associated with coronavirus-19. Ebola Screen: No symptoms or risks identified at this time. Initial Sepsis Screen: Does the patient meet any 2 criteria? No. Patient's initial sepsis screen is negative. Does the patient have a suspected source of infection? No. Patient's initial sepsis screen is negative. Risk Assessment: Do you want to hurt yourself or someone else? Patient reports no desire to harm self or others. Onset of symptoms was August 10, 2021. Transition of care: patient was not received from another setting of care. 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 - Social history:: Smoking status: Patient denies any tobacco usage or history of. Patient/guardian denies using alcohol, street drugs. Vital Signs: 16:20 BP 117 / 86; Pulse 72; Resp 18; Temp 97.9(TE); Pulse Ox 98% on R/A; Weight 73.03 kg jb4 (R); Height 5 ft. 4 in. (162.56 cm) (R); Pain 10/10; 16:20 Body Mass Index 27.64 (73.03 kg, 162.56 cm) jb4 ED Course: 16:16 Patient arrived in ED. ds1 16:19 Magdi Stein PA is PHCP. m 16:19 Nicholas Baptiste MD is Attending Physician. jmm 16:21 Triage completed. jb4 16:22 Arm band placed on right wrist. jb4 16:55 CT Head Brain wo Cont In Process Unspecified. EDMS 17:14 Shuntogram XRAY In Process Unspecified. EDMS 17:36 Alma Cenra, RN is Primary Nurse. iw 17:52 No provider procedures requiring assistance completed. Inserted saline lock: 24 gauge iw in right antecubital area, using aseptic technique. Administered Medications: 17:52 Drug: NS 0.9% 250 ml Route: IV; Rate: bolus; Site: right antecubital; iw 18:30 Follow up: IV Status: Completed infusion iw 17:52 Drug: Reglan (metoCLOPramide) 20 mg Route: IVP; Site: right antecubital; iw 18:10 Follow up: Response: No adverse reaction iw 17:52 Drug: Ketorolac 30 mg Route: IVP; Site: right antecubital; iw 18:10 Follow up: Response: No adverse reaction iw Outcome: 18:56 Discharge ordered by . m 19:06 Patient left the ED. iw Signatures: Dispatcher [employer] EDMS Magdi Stein PA PA Cecilia Larson ds1 Alma Cerna, RN RN iw José Miguel Sorto RN RN jb4
[2021-08-10 19:37] VITALS: BP 117/86; TEMP 97.9; O2SAT 98
== END 2021-08-10 19:06 | disposition home or self-care (01) ==
LOC: ER 16:12
DX: R51.9 Headache, unspecified (principal); Z98.2 Presence of cerebrospinal fluid drainage device; I10 Essential (primary) hypertension; Z86.718 Personal history of other venous thrombosis and embolism
CPT/HCPCS: 96365; 70450; 75809; 49427; 96375; 99283; J2765; J7050